=== PATIENT | male | born 2000 | race Two or more races ===

== ENCOUNTER 2023-05-02 11:36 | Outpatient (CLI) | payer OTHER ==
[2023-05-02] MEDS ORDERED: GASTROGRAFIN 30 ML BOT ONE (14:48)
[2023-05-02] MEDS ORDERED: Iopamidol 370 76% 100 ML VIAL ONE (14:49)
== END 2023-05-02 11:37 | disposition home or self-care (01) ==
LOC: CT 11:36
DX: R10.30 Lower abdominal pain, unspecified (principal)
CPT/HCPCS: 74177; Q9963; Q9967